=== PATIENT | male | born 1995 | race Caucasian/White ===

== ENCOUNTER 2016-11-18 18:22 | Inpatient (IN) | payer BC ==
[2016-11-18 19:37] LABS: Urine Bilirubin Negative (Negative); Urine Glucose Negative (Negative); Urine Nitrite Negative (Negative)
[2016-11-18 19:48] LABS: Benzodiazepine Urine Screen None Detected (None Detect)
[2016-11-18 19:57] LABS: Hematocrit 44 % (42-52); Hemoglobin 15.1 g/dl (14.0-18.0); Mean Corpuscular HGB Conc 34 g/dl (31-36); Mean Corpuscular Hemoglobin 31 pg (27-31); Mean Corpuscular Volume 91 fL (80-94); Mean Platelet Volume 9 um3 (7.4-10.4); Red Blood Count 4.84 10^6/ul (4.0-5.4); Red Cell Distribution Width 13 % (10.5-15); White Blood Count 6.5 10^3/ul (3.5-10.8)
[2016-11-18 20:12] LABS: Acetaminophen < 15 mcg/mL; Alcohol < 10 mg/dL (<10); Salicylate < 2.50 mg/dL (<30)
[2016-11-18 20:13] LABS: ALT 10 U/L (7-52); AST 18 U/L (13-39); Albumin 4.7 g/dL (3.2-5.2); Alkaline Phosphatase 36 U/L (34-104); Anion Gap 7 mmol/L (2-11); Blood Urea Nitrogen 13 mg/dL (6-24); CO2 Carbon Dioxide 27 mmol/L (22-32); Calcium 9.4 mg/dL (8.6-10.3); Chloride 104 mmol/L (101-111); EGFR African American 133.2 (>60); EGFR Non-African American 103.6 (>60); Globulin 2.5 g/dL (2-4); Glucose 94 mg/dL (70-100); Potassium 3.8 mmol/L (3.5-5.0); Sodium 138 mmol/L (133-145); Total Protein 7.2 g/dL (6.4-8.9)
[2016-11-18 20:28] LABS: TSH (Thyroid Stimulating Horm) 1.82 mcIU/mL (0.34-5.60)
--- NOTE | 2016-11-19 01:00 | ED ---
Psychiatric Complaint - HPI Summary HPI Summary: 21 male presents to ED [facility] from [facility] with complaints of suicidal thoughts with a plan. Patient states this has been ongoing however today his thoughts became much stronger. Has been suffering from depression for the past couple of months. Just started recently on prozac which has not become effective yet. Patient denies hallucinations, homicidal ideations, and hearing voices. Denies alcohol and drug use currently, but has used occasionally in the past. States he had a plan to jump off [address], got into his car to go and instead when to [facility] for help. Patient has had previous prior attempts thoughts/ plans. Patient denies any other complaints at this time. No medications. No PMHx. Does have outpatient therapy with [facility], went there today when he was experiencing these strong thoughts of suicide. Still suffering from the same thoughts. Admits to having some increased stress with relationship problems. - History Of Current Complaint Chief Complaint: EDMentalHealth Time Seen by Provider: 11/18/16 18:28 Hx Obtained From: Patient Onset/Duration: Gradual Onset, Lasting Weeks, Still Present, Worse Since Timing: Constant Severity Initially: Moderate Severity Currently: Severe Character: Depressed Aggravating Factor(s): Recent Stress Alleviating Factor(s): Nothing Associated Signs And Symptoms: Positive: Negative Related History: Positive For: Prior Psychiatric Issues Has Suicidal: Reports: Thoughts, With A Plan Has Homicidal: Denies: Thoughts, With A Plan PMH/Surg Hx/FS Hx/Imm Hx Endocrine/Hematology History: Denies: Hx Diabetes Cardiovascular History: Denies: Hx Hypertension Respiratory History: Denies: Hx Asthma - Surgical History Surgery Procedure, Year, and Place: n/a - Immunization History Immunizations Up to Date: Yes Infectious Disease History: No Infectious Disease History: Denies: Traveled Outside the [place] in Last 30 Days - Family History Known Family History: Positive: None - Social History Alcohol Use: Occasionally Substance Use Type: Reports: Marijuana Smoking Status (MU): Current Some Day Smoker Review of Systems Constitutional: Negative Cardiovascular: Negative Respiratory: Negative Gastrointestinal: Negative Positive: Depressed, Other - suicidal thoughts with plan All Other Systems Reviewed And Are Negative: Yes Physical Exam Triage Information Reviewed: Yes Vital Signs On Initial Exam: Initial Vitals Temp Pulse Resp BP Pulse Ox 98.1 F 80 14 120/87 100 11/18/16 18:36 11/18/16 18:36 10/09/17 18:36 11/18/16 18:36 11/18/16 18:36 Vital Signs Reviewed: Yes Appearance: Positive: Well-Appearing, No Pain Distress, Well-Nourished Skin: Positive: Warm, Skin Color Reflects Adequate Perfusion, Dry. Negative: Cold, Cyanosis @, Pale, Erythema @ Head/Face: Positive: Normal Head/Face Inspection Eyes: Positive: EOMI, VALERIA, Conjunctiva Clear ENT: Positive: Hearing grossly normal, Pharynx normal Neck: Positive: Supple, Nontender Respiratory/Lung Sounds: Positive: Clear to Auscultation, Breath Sounds Present. Negative: Rales, Rhonchi, Wheezes Cardiovascular: Positive: Normal, RRR, Pulses are Symmetrical in both Upper and Lower Extremities. Negative: Murmur, Rub Abdomen Description: Positive: Nontender, No Organomegaly, Soft Bowel Sounds: Positive: Present Musculoskeletal: Positive: Normal, Strength/ROM Intact Neurological: Positive: Normal, Sensory/Motor Intact, Alert, Oriented to Person Place, Time, NV Bundle Intact Distally, Normal Gait Psychiatric: Positive: Depressed - [place] Coma Scale Best Eye Response: 4 - Spontaneous Best Motor Response: 6 - Obeys Commands Best Verbal Response: 5 - Oriented Coma Scale Total: 15 Diagnostics - Vital Signs Vital Signs Temp Pulse Resp BP Pulse Ox 11/18/16 20:39 99.5 F 63 16 118/70 100 11/18/16 18:36 98.1 F 80 14 120/87 100 - Laboratory Lab Results: Lab Results 11/18/16 11/18/16 11/18/16 Range/Units 18:45 18:45 19:07 WBC (3.5-10.8) 10^3/ul RBC (4.0-5.4) 10^6/ul Hgb (14.0-18.0) g/dl Hct (42-52) % MCV (80-94) fL MCH (27-31) pg MCHC (31-36) g/dl RDW (10.5-15) % Plt Count (150-450) 10^3/ul MPV (7.4-10.4) um3 Neut % (Auto) (38-83) % Lymph % (Auto) (25-47) % Stevens % (Auto) (1-9) % Eos % (Auto) (0-6) % Baso % (Auto) (0-2) % Absolute Neuts (auto) (1.5-7.7) 10^3/ul Absolute Lymphs (auto) (1.0-4.8) 10^3/ul Absolute Monos (auto) (0-0.8) 10^3/ul Absolute Eos (auto) (0-0.6) 10^3/ul Absolute Basos (auto) (0-0.2) 10^3/ul Absolute Nucleated RBC 10^3/ul Nucleated RBC % Sodium 138 (133-145) mmol/L Potassium 3.8 (3.5-5.0) mmol/L Chloride 104 (101-111) mmol/L Carbon Dioxide 27 (22-32) mmol/L Anion Gap 7 (2-11) mmol/L BUN 13 (6-24) mg/dL Creatinine 0.93 (0.67-1.17) mg/dL Est GFR ( Amer) 133.2 (>60) Est GFR (Non-Af Amer) 103.6 (>60) BUN/Creatinine Ratio 14.0 (8-20) Glucose 94 (70-100) mg/dL Calcium 9.4 (8.6-10.3) mg/dL Total Bilirubin 0.80 (0.2-1.0) mg/dL AST 18 (13-39) U/L ALT 10 (7-52) U/L Alkaline Phosphatase 36 (34-104) U/L Total Protein 7.2 (6.4-8.9) g/dL Albumin 4.7 (3.2-5.2) g/dL Globulin 2.5 (2-4) g/dL Albumin/Globulin Ratio 1.9 (1-3) TSH 1.82 (0.34-5.60) mcIU/mL Urine Color Straw Urine Appearance Clear Urine pH 7.0 (5-9) Ur Specific Mobile 1.008 L (1.010-1.030) Urine Protein Negative (Negative) Urine Ketones Negative (Negative) Urine Blood Negative (Negative) Urine Nitrate Negative (Negative) Urine Bilirubin Negative (Negative) Urine Urobilinogen Negative (Negative) Ur Leukocyte Esterase Negative (Negative) Urine Glucose Negative (Negative) Salicylates < 2.50 (<30) mg/dL Urine Opiates Screen None detected (None Detect) Acetaminophen < 15 mcg/mL Ur Barbiturates Screen None detected (None Detect) Ur Phencyclidine Scrn None detected (None Detect) Ur Amphetamines Screen None detected (None Detect) U Benzodiazepines Scrn None detected (None Detect) Urine Cocaine Screen None detected (None Detect) U Cannabinoids Screen None detected (None Detect) Serum Alcohol < 10 (<10) mg/dL 11/18/16 Range/Units 19:07 WBC 6.5 (3.5-10.8) 10^3/ul RBC 4.84 (4.0-5.4) 10^6/ul Hgb 15.1 (14.0-18.0) g/dl Hct 44 (42-52) % MCV 91 (80-94) fL MCH 31 (27-31) pg MCHC 34 (31-36) g/dl RDW 13 (10.5-15) % Plt Count 288 (150-450) 10^3/ul MPV 9 (7.4-10.4) um3 Neut % (Auto) 59.1 (38-83) % Lymph % (Auto) 33.2 (25-47) % Stevens % (Auto) 5.3 (1-9) % Eos % (Auto) 1.8 (0-6) % Baso % (Auto) 0.6 (0-2) % Absolute Neuts (auto) 3.8 (1.5-7.7) 10^3/ul Absolute Lymphs (auto) 2.1 (1.0-4.8) 10^3/ul Absolute Monos (auto) 0.3 (0-0.8) 10^3/ul Absolute Eos (auto) 0.1 (0-0.6) 10^3/ul Absolute Basos (auto) 0 (0-0.2) 10^3/ul Absolute Nucleated RBC 0 10^3/ul Nucleated RBC % 0 Sodium (133-145) mmol/L Potassium (3.5-5.0) mmol/L Chloride (101-111) mmol/L Carbon Dioxide (22-32) mmol/L Anion Gap (2-11) mmol/L BUN (6-24) mg/dL Creatinine (0.67-1.17) mg/dL Est GFR ( Amer) (>60) Est GFR (Non-Af Amer) (>60) BUN/Creatinine Ratio (8-20) Glucose (70-100) mg/dL Calcium (8.6-10.3) mg/dL Total Bilirubin (0.2-1.0) mg/dL AST (13-39) U/L ALT (7-52) U/L Alkaline Phosphatase (34-104) U/L Total Protein (6.4-8.9) g/dL Albumin (3.2-5.2) g/dL Globulin (2-4) g/dL Albumin/Globulin Ratio (1-3) TSH (0.34-5.60) mcIU/mL Urine Color Urine Appearance Urine pH (5-9) Ur Specific Mobile (1.010-1.030) Urine Protein (Negative) Urine Ketones (Negative) Urine Blood (Negative) Urine Nitrate (Negative) Urine Bilirubin (Negative) Urine Urobilinogen (Negative) Ur Leukocyte Esterase (Negative) Urine Glucose (Negative) Salicylates (<30) mg/dL Urine Opiates Screen (None Detect) Acetaminophen mcg/mL Ur Barbiturates Screen (None Detect) Ur Phencyclidine Scrn (None Detect) Ur Amphetamines Screen (None Detect) U Benzodiazepines Scrn (None Detect) Urine Cocaine Screen (None Detect) U Cannabinoids Screen (None Detect) Serum Alcohol (<10) mg/dL Result Diagrams: 11/18/16 19:07 11/18/16 19:07 Lab Statement: Any lab studies that have been ordered have been reviewed, and results considered in the medical decision making process. Course/Dx - Course Course Of Treatment: lab work and urine obtained. patient was medically cleared. no concern of any other emergent etiology at this time. strongly suggest admission due to extent of depression, suicidal ideation and plan. Would not be safe going home. Patient was signed out to Dr Quinones at shift change 2:30am pending psychiatric eval and disposition. Was comfortable throughout stay. No medications given. No other complaints. - Differential Dx/Clinical Impression Differential Diagnosis/HQI/PQRI: Positive: Depression, Suicide Attempt, Suicidal Ideation, Suicidal Gesture Provider Diagnosis: Suicidal ideation, Suicide gesture, Depression - Physician Notifications Discussed Care Of Patient With: Dr Quinones [facility] Time Discussed With Above Provider: 02:30 Patient Is Medically Stable For: Psych Evaluation Discharge - Discharge Plan Condition: Stable Disposition: OTHER Discharge Disposition Comment: signed out to Dr Quinones at shift change 2:30am pending psychiatric eval
[2016-11-19] MEDS ORDERED: Acetaminophen TAB* 325 MG PO PRN (12:59)
[2016-11-19] MEDS ORDERED: Al Hydrox/Mg Hydrox/Simet LIQ* 30 ML UDC PO PRN (12:59)
[2016-11-19] MEDS ORDERED: hydrOXYzine HCL TAB* 50 MG PO PRN (13:00)
[2016-11-20] MEDS ORDERED: hydrOXYzine HCL TAB* 25 MG PO PRN (12:15)
[2016-11-20] MEDS: buPROPion TAB* 100 MG PO SCH (13:09)
--- NOTE | 2016-11-20 13:15 | PN ---
MHU: Group Therapy Note - Service Type Service Type: [id number] Group Psychotherapy - Cognitive Behavioral Group Therapy ( CBT):Patient was attentive and participatory in CBT programming this morning, and remained in good behavioral control. Patient expressed positive insights regarding relevant treatment interventions and goals.
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
[2016-11-21 07:43] VITALS: BP 115/60
[2016-11-21] MEDS: buPROPion TAB* 100 MG PO SCH (09:10)
--- NOTE | 2016-11-21 14:14 | PN ---
MHU: Group Therapy Note - Service Type Service Type: [id number] Group Psychotherapy - Cognitive Behavioral Group Therapy ( CBT):Patient was attentive and participatory in CBT programming this morning, and remained in good behavioral control. Patient expressed positive insights regarding relevant treatment interventions and goals.
--- NOTE | 2016-11-21 14:15 | PN ---
MHU: Group Therapy Note - Service Type Service Type: [id number] Group Psychotherapy - Cognitive Behavioral Group Therapy ( CBT):Patient was attentive and participatory in CBT programming this morning, and remained in good behavioral control. Patient expressed positive insights regarding relevant treatment interventions and goals.
--- NOTE | 2016-11-21 15:01 | DS ---
CC: [facility]* DATE OF ADMISSION: 11/19/2016. DATE OF DISCHARGE: 11/21/2016. SUPERVISING PSYCHIATRIST: Dr. Marvin* (dictated by DILMA Saucedo). DISCHARGE DIAGNOSES: Major depressive disorder with anxious distress, stressors related to recent break-up of relationship, academic strain. CONDITION AT TIME OF DISCHARGE: Improved. The patient is euthymic with a bright affect. He is interactive and appropriate with staff and peers. He has been participating in groups. He reports no adverse effects from first dose of Wellbutrin. His sister and her partner visited over visiting hours. This adjusto writer operator spoke with them individually and with Víctor. We reviewed his suicidality history and events leading to admission. His sister identified that he has consistently had difficulty expressing emotions and thinks that he would benefit greatly from therapy. She corroborated reports from Víctor that his mother is often triggering to him as she is very direct and sometimes not kind. Víctor feels that his sister is a strong support and his sister plans on having him join them when they go out of town this weekend. He is also going to stay with them tonight after discharge and meeting with his [place] therapist. MENTAL STATUS EXAM: The patient is a thin white male with long hair in a bun. He appears stated age. He is calm and cooperative and in behavioral control. He is pleasant and answers questions fully. He is alert and oriented times three. His eye contact is good. His concentration is good. His memory is 3/ 3. His mood is "good." He presents as euthymic. His affect is bright upon approach. His speech is soft and articulate. Thought process is logical and goal directed and evidenced of future planning. Content of thought, he denies suicidal ideation, HI or . His insight is good. His judgment is good. His fund of knowledge is excellent. DISCHARGE INSTRUCTIONS: Discharge instructions will be given to the patient by nursing staff. A. Medications: He will start Wellbutrin XL 150 mg p.o. q.a.m. tomorrow. He may use Hydroxyzine 25 mg daily prn anxiety and insomnia. There were electronically prescribed to [facility]. B. Diet: Regular. C. Activity: Ambulation as tolerated. Tobacco cessation not applicable. There are no pending labs or diagnostic studies at the time of discharge. D. Follow-up care: He will see therapist at [facility] today at 3:00 p.m. and he will continue seeing his primary therapy Zohra Barros on a regular basis. Discharge planning has set up follow-up appointments with her. The patient will be seen by [facility] for any medical problems. HOSPITAL COURSE: A. Reason for admission: The patient presented to his [facility] therapist, Zohra Barros, at [place]. He expressed suicidal ideation with plans to jump off [place]. He was encouraged to come to the emergency department for a mental health evaluation. B. Psychiatric treatment rendered: The patient met criteria for involuntary admission, so he was admitted on status. Code status was full. Safety checks were every 15 minutes. He was safe and in behavioral control and was decreased to every 30 minutes observation. He was allowed a computer to coordinate with professors and allowed to go on staff pass. He participated in intensive milieu, individual and group psychoeducation. He reported adverse effects from a trial of Fluoxetine in the past week, so this was not continued and he started a trial of Wellbutrin for depression. He was also given Hydroxyzine for insomnia and anxiety. This dose was decreased after his first night due to feeling overly sedated. The patient met multiple times with his sister and her partner who live nearby. The patient reports readiness for discharge and eager to resume academic studies. He plans to stay with his sister from now throughout the weekend and agrees to follow- up with [facility] on a regular basis. The patient and family deny risk for suicide at this time. We discussed that his lethality is at risk due to previous attempts and ideation. He is encouraged to identify safety planning with his family and with his [place] counselor. His sister also encourages him to identify hobbies and enjoyable outlets so that he is not working so hard. Due to obligation to treat in a least restrictive setting, treatment team decided upon discharge. The patient retained elevated risk for suicide due to suicidality history. Family present and advocating for release. The patient was discharged by nursing staff to a taxi cab to go to his appointment at [place] if he is not able to contact his sister for transportation. DILMA SAUCEDO [id number]/CPS #: [id number] RITCHIE
== END 2016-11-21 14:40 | disposition home or self-care (01) | DRG 885 ==
LOC: ED 18:22 → BSU 11-19 15:03
PROVIDERS: ADMIT Psychiatry & Neurology Psychiatry; ATTEND Psychiatry & Neurology Psychiatry
PROC: GZHZZZZ Group Psychotherapy (ICD-10-PCS; principal; 2016-11-20)
DX: F32.89 Other specified depressive episodes (principal); R45.851 Suicidal ideations; F12.90 Cannabis use, unspecified, uncomplicated; F17.210 Nicotine dependence, cigarettes, uncomplicated; R40.2362 Coma scale, best motor response, obeys commands, at arrival to emergency department; R40.2142 Coma scale, eyes open, spontaneous, at arrival to emergency department; R40.2252 Coma scale, best verbal response, oriented, at arrival to emergency department; Z72.89 Other problems related to lifestyle
CPT/HCPCS: 36415; 80053; 80307; 80320; 80329; 81003; 84443; 85025; 90853; 99222; 99238; A9270-GY; G0480